=== PATIENT | female | born 1945 | race Caucasian/White ===

== ENCOUNTER 2018-09-06 17:15 | Inpatient (IN) | payer MEDICARE ==
[~2018-09-06] VITALS: Ht 165.1 cm; Wt 63.0 kg
[2018-09-06] MEDS ORDERED: SODIUM CHLORIDE 0.9% 500 ML IV ONE (17:34)
[2018-09-06] MEDS ORDERED: CLONIDINE 0.2MG TABLET PO ONE (19:00)
[2018-09-06 19:05] LABS: BASOPHILS % 0.9 % (0.0-2.0); EOSINOPHILS % 2.2 % (0.0-5.0); HEMOGLOBIN. 8.3 g/dL (12.0-16.0); LYMPHOCYTES % 10.5 % (20.0-50.0); MEAN CORPUSCULAR HEMOGLOBIN 21.4 pg (28.0-32.0); MEAN CORPUSCULAR VOLUME 69.3 fL (81.0-99.0); MEAN PLATELET VOLUME 8.1 fl (7.4-10.4); MONOCYTES % 12.9 % (2.0-8.0); NEUTROPHILS % 73.5 % (40.0-76.0); PLATELET 206 x1000/uL (130-400); RED BLOOD CELL COUNT 3.89 mill/uL (4.2-5.4); RED CELL DISTRIBUTION WIDTH 18.9 % (11.6-14.6)
[2018-09-06 19:09] LABS: CHLORIDE 104 mEq/L (98-107)
[2018-09-06 19:14] LABS: INR 1.2; PARTIAL THROMBOPLASTIN TIME 31.4 sec (23.4-31.0); PROTHROMBIN TIME 12.1 sec (9.1-11.1)
[2018-09-06 19:15] LABS: ETHANOL BLOOD < 10 mg/dL
[2018-09-06 20:24] LABS: PLATELET ESTIMATE NORMAL
[2018-09-06] MEDS ORDERED: IOHEXOL-350 100 ML BOTTLE ONE (23:07)
[2018-09-07] MEDS ORDERED: DEXTROSE 50% WATER 50ML SYRINGE IV PRN (17:00)
[2018-09-07] MEDS ORDERED: DIPHENHYDRAMINE 50MG/ML VIAL IV PRN (17:00)
[2018-09-07] MEDS ORDERED: IPRATROPIUM/ALBUTEROL 0.5-3(2.5)MG/3ML NEB HHN PRN (17:00)
[2018-09-07 17:13] LABS: HEMATOCRIT 24.5 % (36.0-48.0); HEMOGLOBIN 7.6 g/dL (12.0-16.0); MEAN CORPUSCULAR HEMOGLOBIN 21.3 pg (28.0-32.0); MEAN CORPUSCULAR VOLUME 68.9 fL (81.0-99.0); PLATELET 182 x1000/uL (130-400); RED BLOOD CELL COUNT 3.55 mill/uL (4.2-5.4); RED CELL DISTRIBUTION WIDTH 18.6 % (11.6-14.6)
[2018-09-07 17:17] LABS: CHLORIDE 105 mEq/L (98-107)
[2018-09-07] MEDS: SODIUM CHLORIDE 0.45% 1,000 ML IV SCH (17:33)
[2018-09-07 18:22] LABS: BG BASE EXCESS 3.6 mmol/L (-2.0-2.0); BG CARBOXYHEMOGLOBIN 1.1 % (0.5-1.5); BG DEOXYHEMOGLOBIN 6.1 % (0.0-5.0); BG FRACTION INSPIRED OXYGEN 21; BG HCO3 ACT 26.2 mmol/L (22.0-26.0); BG METHEMOGLOBIN 0.4 % (0.0-1.5); BG OXYGEN SATURATION 93.8 % (92.0-98.5); BG OXYHEMOGLOBIN 92.4 % (94.0-97.0); BG PCO2 31.6 mmHg (35.0-45.0); BG PH 7.536 (7.350-7.450); BG SAMPLE SITE RIGHT RADIAL; BG TOTAL HEMOGLOBIN 8.6 g/dL (12.0-18.0); BG VENT MODE ROOM AIR
[2018-09-07] MEDS: INSULIN LISPRO 100 UNITS/ML SUBCUT SCH (21:00)
[2018-09-07] MEDS ORDERED: LACTULOSE 20G/30ML UDC PO PRN (21:00)
[2018-09-07 21:30] VITALS: BP 165/76
[2018-09-08] VITALS (10 sets, daily range): BP systolic 134–173; BP diastolic 52–85
[2018-09-08] MEDS: HYDRALAZINE 20MG/ML VIAL IV PRN ×2 (02:04→20:50)
[2018-09-08] MEDS: HYDROCODONE/ACETAMINOPHEN 5/325MG TABLET PO PRN (02:04)
[2018-09-08] MEDS: BLOOD SUGAR DIAGNOSTIC STRIP TEST SCH ×4 (06:38→20:26)
[2018-09-08] MEDS: INSULIN LISPRO 100 UNITS/ML SUBCUT SCH ×4 (06:43→20:27)
[2018-09-08 07:48] LABS: BASOPHILS % 0.9 % (0.0-2.0); EOSINOPHILS % 3.6 % (0.0-5.0); HEMATOCRIT. 22.8 % (36.0-48.0); HEMOGLOBIN. 7.2 g/dL (12.0-16.0); LYMPHOCYTES % 23.4 % (20.0-50.0); MEAN CORPUSCULAR HEMOGLOBIN 21.3 pg (28.0-32.0); MEAN CORPUSCULAR VOLUME 67.9 fL (81.0-99.0); MEAN PLATELET VOLUME 8.1 fl (7.4-10.4); MONOCYTES % 12.1 % (2.0-8.0); PLATELET 175 x1000/uL (130-400); RED BLOOD CELL COUNT 3.36 mill/uL (4.2-5.4); RED CELL DISTRIBUTION WIDTH 18.5 % (11.6-14.6)
[2018-09-08] MEDS: AMLODIPINE 5MG TABLET PO SCH (08:58)
[2018-09-08 12:02] LABS: CLARITY URINE CLOUDY (CLEAR); COLOR URINE YELLOW (YELLOW); KETONES URINE NEGATIVE (NEGATIVE); LEUKOCYTE ESTERASE URINE 3+ (NEGATIVE); NITRITE URINE NEGATIVE (NEGATIVE); OCCULT BLOOD URINE NEGATIVE (NEGATIVE); PROTEIN URINE NEGATIVE (NEGATIVE); SPECIFIC GRAVITY URINE 1.015 (1.005-1.030)
[2018-09-08 12:08] LABS: HEMATOCRIT 23.6 % (36.0-48.0); HEMOGLOBIN 7.4 g/dL (12.0-16.0)
[2018-09-08 13:04] LABS: CHLORIDE 106 mEq/L (98-107)
[2018-09-08 13:18] LABS: PHOSPHORUS 2.6 mg/dL (2.5-4.9)
[2018-09-08 13:20] LABS: LDL CHOLESTEROL 49 mg/dL (5-100)
[2018-09-08 13:22] LABS: HDL CHOLESTEROL 32 mg/dL (40-59)
[2018-09-08] MEDS ORDERED: POTASSIUM CHLORIDE 20MEQ/PACKET PO NR (14:00)
[2018-09-08] MEDS ORDERED: CEFTRIAXONE 1 G PREMIX 50 ML IV SCH (18:00)
[2018-09-08] MEDS ORDERED: ACETAMINOPHEN 325MG TABLET PO PRN (18:45)
[2018-09-08] MEDS: SODIUM CHLORIDE 0.45% 1,000 ML IV SCH (20:22)
[2018-09-08] MEDS: CEFTRIAXONE 1 G PREMIX 50 ML IV SCH (20:50)
[2018-09-08 21:51] LABS: HEMATOCRIT 27.5 % (36.0-48.0); HEMOGLOBIN 8.8 g/dL (12.0-16.0)
[2018-09-08 21:57] LABS: INR 1.2; PROTHROMBIN TIME 12.2 sec (9.1-11.1)
[2018-09-08] MEDS ORDERED: INSLIS SUBCUT (23:02)
[2018-09-08] MEDS ORDERED: LISI-604 MT (23:02)
[2018-09-08] MEDS ORDERED: CLON0.1T MT (23:02)
[2018-09-08] MEDS ORDERED: GABA-529 MT (23:02)
[2018-09-08] MEDS ORDERED: METO25TA6 MT (23:02)
[2018-09-09] VITALS: BP 143/59
[2018-09-09 04:00] VITALS: BP 164/65
[2018-09-09] MEDS: BLOOD SUGAR DIAGNOSTIC STRIP TEST SCH ×4 (06:17→20:29)
[2018-09-09] MEDS: INSULIN LISPRO 100 UNITS/ML SUBCUT SCH ×4 (06:23→20:29)
[2018-09-09 07:20] LABS: HEMATOCRIT 27.2 % (36.0-48.0); HEMOGLOBIN 8.6 g/dL (12.0-16.0); MEAN CORPUSCULAR HEMOGLOBIN 22.4 pg (28.0-32.0); PLATELET 181 x1000/uL (130-400); RED BLOOD CELL COUNT 3.83 mill/uL (4.2-5.4); RED CELL DISTRIBUTION WIDTH 20.7 % (11.6-14.6)
[2018-09-09 08:00] VITALS: BP 147/70
[2018-09-09 08:05] LABS: CHLORIDE 109 mEq/L (98-107)
[2018-09-09 08:10] LABS: TOTAL IRON BINDING CAPACITY 307 ug/dL (250-450)
[2018-09-09] MEDS ORDERED: IOHEXOL-300 100 ML BOTTLE ONE (09:20)
[2018-09-09] MEDS: AMLODIPINE 5MG TABLET PO SCH (09:58)
[2018-09-09 12:00] VITALS: BP 146/65
[2018-09-09 16:00] VITALS: BP 145/71
[2018-09-09] MEDS: SODIUM CHLORIDE 0.45% 1,000 ML IV SCH (17:30)
[2018-09-09 20:00] VITALS: BP 150/60
[2018-09-09] MEDS ORDERED: BUPIVACAINE HCL 0.5% (5MG/ML) 50ML ONE (20:00)
[2018-09-09] MEDS: CEFTRIAXONE 1 G PREMIX 50 ML IV SCH (21:04)
[2018-09-09] MEDS ORDERED: SODIUM CHLORIDE 0.9% 10ML VIAL ONE (22:17)
[2018-09-09] MEDS ORDERED: EPHEDRINE SULFATE 50MG/ML VIAL ONE (22:49)
[2018-09-09] MEDS ORDERED: BACITRACIN 50,000 UNITS/VIAL ONE (23:00)
[2018-09-09] MEDS ORDERED: ONDANSETRON HCL 4MG/2ML INJ ONE (23:07)
[2018-09-10] VITALS (7 sets, daily range): BP systolic 126–153; BP diastolic 52–80
[2018-09-10] MEDS ORDERED: HYDROMORPHONE HCL/PF 2MG/ML CPJ IV PRN (00:30)
[2018-09-10] MEDS: BLOOD SUGAR DIAGNOSTIC STRIP TEST SCH (06:30)
[2018-09-10] MEDS: INSULIN LISPRO 100 UNITS/ML SUBCUT SCH (06:35)
[2018-09-10 07:30] LABS: BASOPHILS % 1.3 % (0.0-2.0); EOSINOPHILS % 2.4 % (0.0-5.0); HEMATOCRIT. 27.3 % (36.0-48.0); HEMOGLOBIN. 8.5 g/dL (12.0-16.0); MEAN CORPUSCULAR HEMOGLOBIN 22.1 pg (28.0-32.0); MEAN CORPUSCULAR VOLUME 70.7 fL (81.0-99.0); MEAN PLATELET VOLUME 8.5 fl (7.4-10.4); MONOCYTES % 9.7 % (2.0-8.0); NEUTROPHILS % 71.6 % (40.0-76.0); PLATELET 184 x1000/uL (130-400); RED BLOOD CELL COUNT 3.86 mill/uL (4.2-5.4); RED CELL DISTRIBUTION WIDTH 20.4 % (11.6-14.6)
[2018-09-10 07:42] LABS: CHLORIDE 107 mEq/L (98-107)
[2018-09-10 07:59] LABS: LDL CHOLESTEROL 52 mg/dL (5-100)
[2018-09-10 08:00] LABS: HDL CHOLESTEROL 32 mg/dL (40-59)
[2018-09-10] MEDS: HYDROCODONE/ACETAMINOPHEN 5/325MG TABLET PO PRN (10:20)
[2018-09-10] MEDS: AMLODIPINE 5MG TABLET PO SCH (10:21)
[2018-09-10] MEDS ORDERED: CLONIDINE 0.1MG TABLET PO PRN (13:15)
[2018-09-10] MEDS ORDERED: CLONIDINE 0.2MG TABLET PO PRN (13:15)
[2018-09-10] MEDS ORDERED: LEVOFLOXACIN 500MG PREMIX 100 ML IV SCH (16:00)
[2018-09-10] MEDS ORDERED: FERROUS SULFATE 325MG TABLET PO SCH (17:40)
[2018-09-10] MEDS ORDERED: INSULIN LISPRO 100 UNITS/ML SUBCUT SCH (17:40)
[2018-09-10] MEDS ORDERED: METOPROLOL TARTRATE 25MG TABLET PO SCH (21:00)
== END 2018-09-10 21:45 | DRG 598 ==
LOC: ER 17:15 → EDBEDREQTM 21:26 → EDBEDREQ 21:26 → ENRESERV 09-07 19:51 → 8WST 09-07 21:23
PROVIDERS: ADMIT Internal Medicine; ATTEND Internal Medicine
PROC: 30233N1 Transfusion of Nonautologous Red Blood Cells into Peripheral Vein, Percutaneous Approach (ICD-10-PCS; 2018-09-08)
PROC: 0WB8XZX Excision of Chest Wall, External Approach, Diagnostic (ICD-10-PCS; principal; 2018-09-09)
DX: C50.911 Malignant neoplasm of unspecified site of right female breast (principal); C77.1 Secondary and unspecified malignant neoplasm of intrathoracic lymph nodes; C79.89 Secondary malignant neoplasm of other specified sites; C78.00 Secondary malignant neoplasm of unspecified lung; N39.0 Urinary tract infection, site not specified; E44.0 Moderate protein-calorie malnutrition; R29.6 Repeated falls; R62.7 Adult failure to thrive; D64.9 Anemia, unspecified; M48.061 Spinal stenosis, lumbar region without neurogenic claudication; B96.20 Unspecified Escherichia coli [E. coli] as the cause of diseases classified elsewhere; D50.9 Iron deficiency anemia, unspecified; E11.42 Type 2 diabetes mellitus with diabetic polyneuropathy; E11.65 Type 2 diabetes mellitus with hyperglycemia; E78.00 Pure hypercholesterolemia, unspecified; I27.20 Pulmonary hypertension, unspecified; Z87.891 Personal history of nicotine dependence; Z91.81 History of falling; Z79.4 Long term (current) use of insulin
CPT/HCPCS: 36415; 36600; 71045; 71275; 72131; 72170; 74177; 80048; 80061; 82375; 82805; 82962; 83036; 83540; 83550; 83735; 83880; 84100; 84443; 84484; 85014; 85018; 85027; 85384; 86300; 86850; 86900; 86920; 87077; 87186; 88309; 93005; 93306; 93970; 96360; 97162; 99284; 99285; A6261; G0482; J0360; J0696; J1815; J1956; J2405; J3490; J7040; J7050; P9016; Q9967